=== PATIENT | male | born 1960 | race Caucasian/White ===

== ENCOUNTER 2017-02-22 22:47 | Emergency (ER) | payer OTHER ==
[~2017-02-22] VITALS: Ht 188 cm; Wt 111.1 kg
[~2017-02-22 22:47] MED LIST: ASPI-605 PO; FAMO-132 PO; HYDR-500 PO
--- NOTE | 2017-02-23 00:45 | NUR ---
Patient is in bed, no distress noted. No neurologic deficits noted. Alert and oriented x 4. Complains of increased heartburn in recent weeks. Per patient statement " I think I can not swallow because the heart burn hurts my throat". MD aware. Continue to monitor.
[2017-02-23] MEDS ORDERED: MAG HYDROX/AL HYDROX/SIMETH 30 ML LIQUID UDC PO ONE (01:00)
[2017-02-23] MEDS ORDERED: DONEPEZIL 5 MG TABLET PO ONE (01:00)
[2017-02-23] MEDS ORDERED: LIDOCAINE VISCUS 2% 15 ML UDC MM ONE (01:00)
[2017-02-23] MEDS ORDERED: FAMOTIDINE 20 MG TABLET PO ONE (01:00)
[2017-02-23] MEDS ORDERED: MAG HYDROX/AL HYDROX/SIMETH 30 ML LIQUID UDC ONE (01:08)
[2017-02-23] MEDS ORDERED: DONEPEZIL 5 MG TABLET ONE (01:08)
[2017-02-23] MEDS ORDERED: LIDOCAINE VISCUS 2% 15 ML UDC ONE (01:08)
[2017-02-23] MEDS ORDERED: FAMOTIDINE 20 MG TABLET ONE (01:08)
--- NOTE | 2017-02-23 01:17 | NUR ---
Patient discharged to home in stable conditon. Written and verbal after care instructions given. Patient verbalizes understanding of instructions. Ambulated from ER with stable gait. All belongings with patient.
[2017-02-23 01:20] VITALS: BP 128/78
== END 2017-02-23 01:20 | disposition home or self-care (01) ==
LOC: ER 22:49
DX: K21.9 Gastro-esophageal reflux disease without esophagitis (principal); F10.20 Alcohol dependence, uncomplicated; F17.200 Nicotine dependence, unspecified, uncomplicated; E03.9 Hypothyroidism, unspecified; Z79.82 Long term (current) use of aspirin
CPT/HCPCS: 70360; A4663

== ENCOUNTER 2017-02-23 01:56 | Emergency (ER) | payer OTHER ==
[~2017-02-23] VITALS: Ht 188 cm; Wt 111.1 kg
--- NOTE | 2017-02-23 02:10 | NUR ---
Labs and xray was done.
--- NOTE | 2017-02-23 02:10 | NUR ---
Pt came back after being discharge an hour ago (or possibly few minutes ago) for xray and lab test.
[2017-02-23 02:13] LABS: BASOPHILS % (AUTO) 0.6 % (0.0-2.0); EOSINOPHILS # (AUTO) 0.3 K/uL (0.0-0.7); EOSINOPHILS % (AUTO) 3.8 % (0.0-7.0); HEMATOCRIT 37.7 % (40-50); HEMOGLOBIN 13.4 G/DL (14.0-18.0); LYMPHOCYTES % (AUTO) 28.1 % (20.5-51.5); MEAN CORPUSCULAR HEMOGLOBIN 33.1 UUG (27.0-31.0); MEAN CORPUSCULAR HGB CONC 36 g/dL (32.0-37.0); MEAN CORPUSCULAR VOLUME 92.9 FL (82.0-92.0); MONOCYTES # (AUTO) 0.6 K/UL (0.1-1.30); MONOCYTES % (AUTO) 8.6 % (0.0-11.0); NEUTROPHILS # (AUTO) 4.1 K/UL (1.8-8.9); NEUTROPHILS % (AUTO) 58.9 % (38.5-71.5); PLATELET COUNT (AUTO) 261 K/UL (150-450); RED BLOOD CELL COUNT(AUTO) 4.06 MIL/UL (4.7-6.1); WHITE BLOOD COUNT (AUTO) 6.9 K/UL (4.0-11.2)
[2017-02-23 02:15] LABS: CREATININE 1.2 mg/dL (0.6-1.3); POTASSIUM 3.9 mmol/L (3.5-5.1)
[2017-02-23 02:21] LABS: BILIRUBIN,DIRECT 0.1 mg/dL (0.0-0.2); BILIRUBIN,TOTAL 0.5 mg/dL (0.2-1.0); TOTAL PROTEIN, SERUM 6.2 g/dL (6.4-8.2)
--- NOTE | 2017-02-23 02:45 | NUR ---
came to see and discussed results and discharge plans. Xray results will be relayed to him.
--- NOTE | 2017-02-23 03:00 | NUR ---
Patient discharged to home in stable conditon. Written and verbal after care instructions given. Patient verbalizes understanding of instructions.
== END 2017-02-23 03:00 | disposition home or self-care (01) ==
LOC: ER 01:58
DX: R13.10 Dysphagia, unspecified (principal); E03.9 Hypothyroidism, unspecified; F10.20 Alcohol dependence, uncomplicated; F17.200 Nicotine dependence, unspecified, uncomplicated; Z79.82 Long term (current) use of aspirin
CPT/HCPCS: 36415; 71020; 85025; 85730; A4663

== ENCOUNTER 2017-07-03 11:15 | Emergency (ER) | payer OTHER ==
[~2017-07-03] VITALS: Ht 188 cm; Wt 109.8 kg
--- NOTE | 2017-07-03 12:01 | NUR ---
Patient discharged to home in stable conditon. Written and verbal after care instructions given. Patient verbalizes understanding of instructions.pt walks in steady gait. pt says the pain is down to tolerable level.
[2017-07-03 12:02] VITALS: BP 111/69
== END 2017-07-03 12:08 | disposition home or self-care (01) ==
LOC: ER 11:15
DX: S39.012A Strain of muscle, fascia and tendon of lower back, initial encounter (principal); E03.9 Hypothyroidism, unspecified; F17.200 Nicotine dependence, unspecified, uncomplicated; Z79.82 Long term (current) use of aspirin; X50.9XXA Other and unspecified overexertion or strenuous movements or postures, initial encounter; Y93.89 Activity, other specified; Y92.9 Unspecified place or not applicable; Y99.9 Unspecified external cause status
CPT/HCPCS: 96372; 99283; A4663; J1885

== ENCOUNTER 2018-01-20 15:57 | Emergency (ER) | payer OTHER ==
[~2018-01-20] VITALS: Ht 190.5 cm; Wt 111.1 kg
--- NOTE | 2018-01-20 17:34 | NUR ---
MSE COMPLETED, PT D/C'D HOME, ACI/RX X2 GIVEN. PT AMBULATED W/O DIFF/TOOK ALL BELONGINGS.
[2018-01-20 17:36] VITALS: BP 110/74
== END 2018-01-20 17:37 | disposition home or self-care (01) ==
LOC: ER 15:57
DX: S23.3XXA Sprain of ligaments of thoracic spine, initial encounter (principal); E03.9 Hypothyroidism, unspecified; F17.210 Nicotine dependence, cigarettes, uncomplicated; Z79.82 Long term (current) use of aspirin; Z79.899 Other long term (current) drug therapy; X58.XXXA Exposure to other specified factors, initial encounter; Y93.89 Activity, other specified; Y92.89 Other specified places as the place of occurrence of the external cause; Y99.8 Other external cause status
CPT/HCPCS: 72072; A4663

== ENCOUNTER 2018-02-14 02:22 | Emergency (ER) | payer OTHER ==
[~2018-02-14] VITALS: Ht 190.5 cm; Wt 90.7 kg
--- NOTE | 2018-02-14 02:50 | NUR ---
DR TEODORO GONZALES MD AT BEDSIDE FOR MSE.
--- NOTE | 2018-02-14 03:15 | NUR ---
Patient discharged to home in stable conditon. Written and verbal after care instructions given. Patient verbalizes understanding of instructions. No acute distress noted. Pt took all personal belongings.
[2018-02-14 04:59] VITALS: BP 118/64
== END 2018-02-14 05:02 | disposition home or self-care (01) ==
LOC: ER 02:24
DX: N48.1 Balanitis (principal); E03.9 Hypothyroidism, unspecified; F17.210 Nicotine dependence, cigarettes, uncomplicated; Z79.82 Long term (current) use of aspirin; Z79.899 Other long term (current) drug therapy; G62.9 Polyneuropathy, unspecified
CPT/HCPCS: A4663